=== PATIENT | male | born 1960 ===

== ENCOUNTER 2020-04-03 13:31 | Outpatient (CLI) | payer OTHER ==
[~2020-04-03] VITALS: Ht 175.3 cm; Wt 87.5 kg
[2020-04-03 12:50] VITALS: BP 112/57
--- NOTE | 2020-04-03 21:44 | Consultation ---
DATE OF CONSULTATION: 04/03/2020 CHIEF COMPLAINT: Cardenas's esophagus. PAST MEDICAL HISTORY: Cardenas's esophagus, gastric ulceration, and alcoholism. PAST SURGICAL HISTORY: None. MEDICATIONS: Please see medication reconciliation list. FAMILY HISTORY: No family history of GI malignancies. SOCIAL HISTORY: The patient has a history of alcoholism, quit about 2 years ago. No IV drug abuse. ALLERGIES: No known allergies. REVIEW OF SYSTEMS: A 10-point review of systems was performed and pertinent positives in HPI. PHYSICAL EXAMINATION: GENERAL: A well-developed male, in no acute distress. HEENT: Normocephalic atraumatic. Sclerae anicteric. NECK: Supple. No evidence of obvious lymphadenopathy. CARDIOVASCULAR: Regular rhythm. Plus S1 and S2. LUNGS: Clear to auscultation bilaterally. ABDOMEN: Positive bowel sounds. Soft and nontender. No rebound. No guarding. No peritoneal sign. EXTREMITIES: No cyanosis, no clubbing, no edema. ASSESSMENT AND PLAN: This is a 59-year-old male with history of gastric ulcer, Cardenas's esophagus, on PPI daily, asymptomatic. Last endoscopy in 2017, needs repeat endoscopy. Risks and benefits of procedure were explained to him. He agreed. We will plan to do endoscopy when the authorization is obtained. Torsten Lujan M.D. DR: Sourav JOB#: [id number] CC:
[2020-04-04] MEDS ORDERED: ADVIL200 MG ORAL (15:07)
[2020-04-04] MEDS ORDERED: SIMVASTATIN5 MG ORAL (15:07)
[2020-04-04] MEDS ORDERED: ZYRTEC10 MG ORAL (15:07)
[2020-04-04] MEDS ORDERED: ACETAMINOPHEN500 M3 ORAL (15:07)
[2020-04-04] MEDS ORDERED: HYDROCHLOROTHIA25 MG ORAL (15:07)
[2020-04-04] MEDS ORDERED: VITAMIN B-1100 MG ORAL (15:54)
[2020-04-04] MEDS ORDERED: TRUVADA 200 MG1 EAC1 ORAL (15:54)
[2020-04-04] MEDS ORDERED: LEXAPRO10 MG ORAL (15:54)
[2020-04-04] MEDS ORDERED: OMEPRAZOLE40 M1 ORAL (15:54)
[2020-04-04] MEDS ORDERED: VITAMIN B COMP1 EAC2 ORAL (15:54)
[2020-04-04] MEDS ORDERED: VIAGRA100 MG PO (15:54)
[2020-04-04] MEDS ORDERED: [UNRECOGNIZED DRUG - OTHER] PO (15:54)
[2020-04-04] MEDS ORDERED: FOLIC ACID1 MG ORAL (15:54)
== END 2020-04-03 15:49 | disposition home or self-care (01) ==
LOC: PAN 13:31
DX: K22.70 Barrett's esophagus without dysplasia (principal)
CPT/HCPCS: G0463